=== PATIENT | female | born 1995 | race Caucasian/White ===

== ENCOUNTER 2020-04-09 08:02 | Day surgery (SDC) | payer BC ==
[~2020-04-09] VITALS: Ht 172.7 cm; Wt 63.6 kg
[2020-04-09 08:26] VITALS: BP 114/72
[2020-04-09] MEDS ORDERED: DIPHENHYDRAMINE 50 MG/ML, 1ML IVPush ONE (08:30)
[2020-04-09] MEDS ORDERED: PLEASE ENTER HEIGHT AND WEIGHT MC SCH (08:30)
[2020-04-09] MEDS ORDERED: PLEASE ENTER ALLERGIES MC SCH (08:30)
[2020-04-09] MEDS ORDERED: CLOB15CR19 TP (08:32)
[2020-04-09] MEDS ORDERED: ALBU8.5H8 INH (08:32)
[2020-04-09] MEDS ORDERED: DIPHENHYDRAMINE 50 MG/ML, 1ML ONE (08:48)
[2020-04-09 08:55] LABS: BASOPHILS % (AUTO) 1 % (0-1); EOSINOPHILS % (AUTO) 2 % (1-7); LYMPHOCYTES % (AUTO) 32 % (22-44); MEAN CORPUSCULAR HEMOGLOBIN 31.5 pg (27.0-34.8); MEAN CORPUSCULAR HGB CONC 33.9 g/dL (32.4-35.8); MEAN PLATELET VOLUME 9.4 fL (7.4-10.4); MONOCYTES % (AUTO) 10 % (2-9); NEUTROPHILS % (AUTO) 55 % (42-75); PLATELET COUNT 206 x10^3/uL (130-400); RED BLOOD COUNT 4.66 x10^6/uL (3.82-5.3)
[2020-04-09 09:02] LABS: MD NO
[2020-04-09 09:07] LABS: ANION GAP 4 mmol/L (5-15); CALCIUM 8.8 mg/dL (8.5-10.1); CHLORIDE 110 mmol/L (98-107)
[2020-04-09 09:10] LABS: INTERNATIONAL NORMALIZED RATIO 1.11 (0.93-1.1); PROTHROMBIN TIME 11.8 Seconds (9.6-11.5)
[2020-04-09 09:12] LABS: CREATININE 1.04 mg/dL (0.55-1.02)
== END 2020-04-09 11:57 | disposition home or self-care (01) ==
LOC: OUT 08:02
PROVIDERS: ATTEND Internal Medicine Cardiovascular Disease
DX: I27.9 Pulmonary heart disease, unspecified (principal); Z72.89 Other problems related to lifestyle; Z79.899 Other long term (current) drug therapy
CPT/HCPCS: 36415; 80048; 83880; 85025; 85610; 93451; C1769; C1894; J1200